=== PATIENT | male | born 1960 | race African-American/Black ===

== ENCOUNTER 2016-09-21 22:58 | Inpatient (IN) | payer OTHER ==
[~2016-09-21] VITALS: Ht 185.4 cm; Wt 127.0 kg
[2016-09-22] VITALS (7 sets, daily range): BP systolic 125–169; BP diastolic 88–96; PULSE 73–100; TEMP 97.6–98.5
[2016-09-22] MEDS ORDERED: PRINZIDE 12.5 M1 TA1 PO (02:22)
[2016-09-22] MEDS ORDERED: CLARITIN 1010 MG/TAB PO (02:23)
[2016-09-22] MEDS ORDERED: VIAGRA100 M1 (02:24)
[2016-09-22] MEDS ORDERED: ZANTAC 150MG T150 MG PO (02:25)
[2016-09-22] MEDS ORDERED: FLONASEALLERGY NS (02:26)
[2016-09-22] MEDS ORDERED: FLOVENT 110MCG7.9 GM IH (02:27)
[2016-09-22] MEDS ORDERED: PROAIR HFA0.09 MG/AC IH (02:29)
[2016-09-22 06:55] LABS: BASO # 0.1 (0.0-0.2); BASO % 0.7 % (0.0-2.0); EOS # 0.2 (0.0-0.7); EOS % 2.2 % (0-4.0); GRAN # 3.7 (1.4-6.5); GRAN % 49.4 % (42.2-75.2); HEMATOCRIT 43.2 % (42.0-52.0); HEMOGLOBIN 14.2 g/dl (13.5-18.0); LYMPH % 40.1 % (20.0-51.0); MEAN CELL VOLUME 88 fl (80.0-100.0); MEAN CORPUSCULAR HEMOGLOBIN 29 pg (27.0-31.0); MEAN CORPUSCULAR HGB CONC 33 g/dl (33.0-37.0); MEAN PLATELET VOLUME 9.9 fl (7.4-10.4); MONO # 0.5 (0.1-0.6); MONO % 7.2 % (1.7-9.3); PLATELET COUNT 256 K/mm3 (130-400); RED BLOOD COUNT 4.93 M/mm3 (4.20-5.60); WHITE BLOOD COUNT 7.4 K/mm3 (4.8-10.8)
[2016-09-22 07:14] LABS: ADJUSTED CALCIUM 9.1 mg/dL (8.4-10.2); ALBUMIN 4.2 gm/dL (3.5-5.0); BILIRUBIN,TOTAL 0.7 mg/dL (0.0-1.0); CALCIUM 9.3 mg/dL (8.4-10.2); CREATININE, serum 1.23 mg/dL (0.66-1.25); MAGNESIUM 2.2 mg/dL (1.6-2.3); PHOSPHOROUS 4.1 mg/dL (2.5-4.5); POTASSIUM 4.5 mmol/L (3.4-5.0); TOTAL PROTEIN 7.8 gm/dL (6.4-8.2)
[2016-09-22 12:55] LABS: CEREBROSPINAL TUBE #4
[2016-09-22 13:43] LABS: CSF APPEARANCE OTHER; CSF COLOR OTHER
[2016-09-23 03:33] VITALS: BP 154/90; PULSE 75; TEMP 98.1
[2016-09-23 07:38] VITALS: BP 169/95; PULSE 67; TEMP 97.5
[2016-09-23 11:46] VITALS: BP 154/93; PULSE 77; TEMP 97.4
[2016-09-23 16:07] VITALS: BP 161/98; PULSE 82; TEMP 97.9
[2016-09-23 20:56] VITALS: BP 139/89; PULSE 86; TEMP 97.9
[2016-09-24 00:18] VITALS: BP 137/82; PULSE 72; TEMP 97.4
[2016-09-24 04:45] VITALS: BP 129/87; PULSE 66; TEMP 98
[2016-09-24 08:26] VITALS: BP 153/97; PULSE 76; TEMP 97.5
[2016-09-24 11:17] VITALS: BP 171/102; PULSE 84
[2016-09-25 10:04] LABS: ALBUMIN CSF 42.3 mg/dL (<=27.0); CSF IGG/ALBUMIN 0.27 (<=0.21); CSF,IGG 11.5 mg/dL (<=8.1)
[2016-09-25 11:31] LABS: CSF SYNTHESIS RATE 15.54 mg/24 h (<=12); CSF-IGG INDEX 0.64 (<=0.85); IGG/ALBUMIN SERUM 0.42 (<=0.40)
[2016-12-02] MEDS ORDERED: LOPRESSOR 225 MG/TAB PO (16:25)
== END 2016-09-24 17:35 | disposition home or self-care (01) | DRG 98 ==
LOC: MEDICAL 22:58
PROVIDERS: Family Medicine; Nurse Practitioner Family
PROC: 009U3ZX Drainage of Spinal Canal, Percutaneous Approach, Diagnostic (ICD-10-PCS; principal; 2016-09-23)
DX: G03.0 Nonpyogenic meningitis (principal); R47.01 Aphasia; R47.81 Slurred speech; R27.0 Ataxia, unspecified; I10 Essential (primary) hypertension; G47.33 Obstructive sleep apnea (adult) (pediatric); R26.9 Unspecified abnormalities of gait and mobility
CPT/HCPCS: 99223-AI; 99233-AI; A9585; J0696; J3370; J7040; J7050

== ENCOUNTER 2016-12-06 15:00 | Outpatient (RCR) | payer OTHER ==
[2016-12-02 16:33] VITALS: BP 154/83; PULSE 70; TEMP 97.8
[2016-12-03 16:24] VITALS: BP 146/76; PULSE 91; TEMP 98.4
[2016-12-04 16:22] VITALS: BP 134/94; PULSE 84
[2016-12-05 16:36] VITALS: BP 153/76; PULSE 87; TEMP 98.1
[~2016-12-06] VITALS: Ht 185.4 cm; Wt 128.6 kg
[~2016-12-06 15:00] MED LIST: CLARITIN 1010 MG/TAB PO; FLONASEALLERGY NS; FLOVENT 110MCG7.9 GM IH; LOPRESSOR 225 MG/TAB PO; PRINZIDE 12.5 M1 TA1 PO; PROAIR HFA0.09 MG/AC IH; VIAGRA100 M1; ZANTAC 150MG T150 MG PO
[2016-12-06 15:10] VITALS: BP 147/74; PULSE 84; TEMP 98.3
== END 2016-12-06 16:39 | disposition home or self-care (01) ==
LOC: EUO 15:00
DX: G35 Multiple sclerosis (principal); Z79.899 Other long term (current) drug therapy
CPT/HCPCS: J2930; J7050; J7060

== ENCOUNTER → 2020-01-14 | Outpatient (CLI) | payer OTHER ==
[~2020-01-14] MED LIST changes: +AMBIEN 10MG10 MG PO; +ASPIRIN 32325 MG/TAB PO; +COZAAR 50MG50 MG/TAB PO; +CRESTOR20 MG PO; +FLEXERIL 1010 MG/TAB PO; +MASON NATURAL2000 IU PO
[2020-01-14 11:01] VITALS: BP 186/107; PULSE 77
--- NOTE | 2020-01-14 11:13 | NUR ---
CALLED DR NAVARRO AND LET HIM KNOW ABOUT THE BP, 189/107. HE REQUESTED PT HAVE LOSARTAN 50 MG NOW AND RECHECK THE BP IN 30 MINUTES.
== END ==
LOC: COL.CARD 10:45
DX: R06.09 Other forms of dyspnea (principal)
CPT/HCPCS: A9500